=== PATIENT | male | born 1980 | race Hispanic/Latino ===

== ENCOUNTER 2019-03-16 23:50 | Emergency (ER) | payer SELFPAY ==
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
[2019-03-17 01:56] LABS: Basophils % (Auto) 0.1 % (0.0-1.8); Eosinophils % (Auto) 0.7 % (0.0-4.3); Hematocrit 42.7 % (35.5-45.6); Hemoglobin 15.2 gm/dl (11.8-15.2); Lymphocytes % (Auto) 30.9 % (13.4-35.0); Mean Corpuscular HGB Conc 36 % (32-34); Mean Corpuscular Volume 88 fl (84-94); Monocytes # (Auto) 0.6 K/mm3 (0.0-0.8); Monocytes % (Auto) 9.7 % (0.0-7.3); Platelet Count 204 K/mm3 (140-440); Red Blood Count 4.85 M/mm3 (3.65-5.03); Red Cell Distribution Width 12.6 % (13.2-15.2)
[2019-03-17 02:05] LABS: Amphetamine Screen,Urine PRESUMPTIVE NEGATIVE; Benzodiazepines Screen,Urine PRESUMPTIVE NEGATIVE; Cocaine Screen,Urine PRESUMPTIVE NEGATIVE; Methadone Screen,Urine PRESUMPTIVE NEGATIVE; Opiate Screen,Urine PRESUMPTIVE NEGATIVE
[2019-03-17 02:06] LABS: BUN/Creatinine Ratio 10; Blood Urea Nitrogen 9 mg/dL (9-20); Calcium 9.4 mg/dL (8.4-10.2); Hemolysis Index 4
[2019-03-17] MEDS ORDERED: POTASSIUM CHLORIDE ER 20 MEQ TAB PO ONE ×2 (02:27→04:40)
[2019-03-17 02:38] LABS: Bilirubin,Urine NEG (Negative); Blood,Urine SM (Negative); Color,Urine Straw (Yellow); Protein,Urine <15 mg/dL mg/dL (Negative); Urobilinogen,Urine < 2.0 mg/dL (<2.0); WBC,Urine < 1.0 /HPF (0.0-6.0)
[2019-03-17 03:00] LABS: Cannabinoid Screen,Urine PRESUMPTIVE NEGATIVE
[2019-03-17] MEDS ORDERED: MUPIROCIN 2% OINT 22 GM TP SCH (11:00)
[2019-03-17] MEDS ORDERED: DIPHENOXYLATE/ATROPINE TAB PO ONE (13:02)
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
[2019-03-18] MEDS ORDERED: ZIPRASIDONE MESYLATE 20 MG VIAL IM PRN (11:45)
[2019-03-18] MEDS ORDERED: MELATONIN 5 MG TAB PO PRN (11:45)
[2019-03-18] MEDS ORDERED: NICOTINE 21 MG/24 HR PATCH TD SCH (12:00)
[2019-03-18] MEDS: risperiDONE 0.25 MG TAB PO SCH ×2 (13:43→22:28)
[2019-03-18] MEDS ORDERED: DOXEPIN 10 MG CAP PO SCH (22:00)
--- NOTE | 2019-03-19 10:44 | Progress Note ---
Subjective - Reason for Consult Consult date: 03/19/19 Reason for consult: suicidal ideation - Chief Complaint Chief complaint: The patient's medical record was reviewed and the patient's progress discussed with the nursing staff. During my interview today, the patient was lying down. Awake. He's dressed appropriately. He makes fair eye contact. Says he's "doing much better." He says "I'd be better if the light was off," then replies "just joking. How are you." He denies SI/HI, saying "I'm much better today, but this bed is uncomfortable." he also denies hallucinations of any kind. He says he's appetite is "good" and he slept "okay, better if I had another bed." The patient denies any fear or feelings of endangerment. REVIEW OF SYSTEMS Constitutional: Negative for weight loss ENT: Negative for stridor Respiratory: Negative for cough or hemoptysis All other systems reviewed and are negative MSE Appearance: Dressed appropriately Behavior: calm cooperative, fair eye contact Mood: "better" Affect: congruent Thought Process: Goal directed Speech: Normal tone and pace Thought Content Suicidal: Denies Homicidal: Denies Hallucinations: Denies Delusions: None elicited Consciousness: Alert Cognition/Memory: Fair Insight/Judgment: Fair Assessment: Major Depressive Disorder, severe, w/o psychotic features Substance Use Disorder Plan Discontinue 1013 Doxepin 10mg po qhs Risperidone 0.25mg po BID Medical: Per primary Disposition: The patient does not meet the requirement for acute inpatient psychiatric treatment. He may discharge home once medically cleared. The patient is to follow up with outpatient psychiatry or primary within 7 to 10 days. Will sign off. Thank you for this consult Mental Status Exam - Vital signs Last Vital Signs Temp 98.0 F 03/19/19 08:10 Pulse 76 03/19/19 08:10 Resp 20 03/19/19 08:10 BP 119/88 03/19/19 08:10 Pulse Ox 98 03/19/19 08:10
[2019-03-19] MEDS: risperiDONE 0.25 MG TAB PO SCH (11:10)
[2019-03-19 15:00] VITALS: BP 116/74
== END 2019-03-19 18:00 ==
LOC: ED 23:50 → EEVIPCON 23:50 → ED 03-19 18:00
DX: F32.9 Major depressive disorder, single episode, unspecified (principal); F10.10 Alcohol abuse, uncomplicated; F17.200 Nicotine dependence, unspecified, uncomplicated; F15.10 Other stimulant abuse, uncomplicated; Z79.899 Other long term (current) drug therapy
CPT/HCPCS: 36415; 80048; 80307; 80320; 81001; 82550; 85025; G0480